=== PATIENT | female | born 1945 | race Caucasian/White ===

== ENCOUNTER 2016-11-25 04:22 | Emergency (ER) | payer OTHER ==
--- NOTE | 2016-11-25 07:49 | DIAGNOSTIC IMAGING REPORT ---
PROCEDURE: XR THORACIC SPINE 3 VIEWS INDICATION: MID BACK PAIN TECHNIQUE: Three views. COMPARISON: None. FINDINGS: There are mild to moderate degenerative change of the mid thoracic spine with mild accentuation of the thoracic kyphosis. No evidence of an acute process or fracture. IMPRESSION: 1. Mild to moderate degenerative changes with accentuation of the thoracic kyphosis. 2. Otherwise negative thoracic spine.
--- NOTE | 2016-11-25 07:50 | DIAGNOSTIC IMAGING REPORT ---
PROCEDURE: XR LUMBAR SPINE 2 OR 3 VIEWS INDICATION: LOWER BACK PAIN TECHNIQUE: Three views. COMPARISON: None. FINDINGS: Moderate degenerate changes of the lower lumbar facet joints. There is mild this space narrowing at L4-5 and L5-S1 Osseous structures and disc spaces are otherwise normal. No evidence of an acute process or fracture. IMPRESSION: 1. Mild to moderate degenerative changes of the lower lumbar spine.
--- NOTE | 2016-11-25 09:56 | ED CLINICAL REPORT ---
Clinical Report - Physicians/Mid Levels [facility] [address] [place] [address] 11/25/2016 4:25 Patient: NIGEL FERNANDO Time Seen: 07:10. Arrived- By private vehicle. Historian- patient. HISTORY OF PRESENT ILLNESS Chief Complaint: BACK PAIN. It is described as being severe and in the area of the mid thoracic spine, lower thoracic spine and upper lumbar spine. The quality is noted to be aching and "pain". Onset was last night and it is still present. It was abrupt in onset and has been constant. No bladder dysfunction, bowel dysfunction, sensory loss or motor loss. Patient denies an injury. Similar symptoms previously: REVIEW OF SYSTEMS No chills, fever, sweats, calf pain or chest pain. No cough, difficulty breathing, pedal edema, palpitations or abdominal pain. No constipation, diarrhea, nausea, vomiting or urinary problems. All systems otherwise negative, except as recorded above. PAST HISTORY Problems: no known problems. Additional Surgeries: Adenoidectomy. Dilatation & Curettage. Fracture Repair. Hysterectomy. Tonsillectomy. Medications: Naproxen Oral, PRN. Allergies: No Known Drug Allergy. SOCIAL HISTORY Never smoker. No alcohol use or drug use. FAMILY HISTORY No significant family medical history. ADDITIONAL NOTES The nursing notes have been reviewed. PHYSICAL EXAM Vital Signs: 11/25/2016 05:02 BP: 165/88. HR: 68. RR: 15. O2 saturation: 99%. Temp: 98.7 F. Delgado-Youssef pain scale: 6/10. Have been reviewed. Appearance: Alert. Appears to be in pain. Eyes: Pupils equal, round and reactive to light. ENT: Pharynx normal. Neck: Normal inspection. Painless ROM. CVS: Normal heart rate and rhythm. Heart sounds normal. Respiratory: No respiratory distress. Breath sounds normal. Abdomen: Normal inspection. Soft and nontender. Bowel sounds normal. No organomegaly. No mass. Back: Severe muscle spasm present in the right lower and left lower thoracic area and right upper and left upper lumbar area. Moderately limited ROM in the back- in the lumbar spine: decreased flexion, extension, right lateral bending, left lateral bending and rotation to the right and left. Skin: Skin warm and dry. Normal skin color. Normal skin turgor. Extremities: Extremities exhibit normal ROM. No calf tenderness. Neuro: No motor deficit. No sensory deficit. LABS, X-RAYS, AND EKG T-Spine X-rays: (IMPRESSION: 1. Mild to moderate degenerative changes with accentuation of the thoracic kyphosis. 2. Otherwise negative thoracic spine.). The X-rays were interpreted by the radiologist and contemporaneously by me. LS-Spine X-rays: (IMPRESSION: 1. Mild to moderate degenerative changes of the lower lumbar spine.). The X-rays were interpreted by the radiologist and contemporaneously by me. PROGRESS AND PROCEDURES Course of Care: Symptoms better. Vital signs have been reviewed. Patient/family counseled. Old medical records ordered. Disposition: Discharged. Condition: stable. 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 Mid back spasm. INSTRUCTIONS Apply ice for 20 minutes four times a day. Don't apply ice directly to skin and don't use while asleep. No driving or operating machinery while taking medication. Sedative medication was given during your visit. No lifting greater than 5 lbs, no bending or stooping or no prolonged sitting. Warnings: GENERAL WARNINGS: Return or contact your physician immediately if your condition worsens or changes unexpectedly, if not improving as expected, or if other problems arise. Prescription Medications: Flexeril 10 mg: Take 1 orally every 8 hours as needed for muscle spasm. Dispense twenty (20). No refills. Substitution is permissible. Toradol 10 mg tablets: Take 1 tablet orally every 6 hours as needed. Dispense fifteen (15). No refills. Substitution is permissible. Follow-up: Follow up with your doctor in two days. Call for the next available appointment. Understanding of the discharge instructions verbalized by patient. (Electronically signed by Gerard Melissa MD 11/27/2016 3:16)
--- NOTE | 2016-11-25 09:56 | ED NURSING NOTES ---
Clinical Report - Nurses [facility] [address] [place] [address] 11/25/2016 4:25 Patient: NIGEL FERNANDO TRIAGE Triage time 05:02. Acuity: LEVEL 4. Chief Complaint: BACK PAIN and ("spasms"). Alert. No acute distress. --05:06 Christina Prince R.N. 05:02 11/25/16. BP: 165/88. HR: 68. RR: 15. O2 saturation: 99% on room air. Temp: 98.7 F (oral). Delgado-Youssef pain scale: 6/10. --05:06 Christina Prince R.N. Weight: 74.8 kg stated. Height/Length: 66 inches Per Patient. BMI: 26.6. --05:06 Christina Prince R.N. Medications Naproxen Oral, PRN. --05:03 Christina Prince R.N. Allergies No Known Drug Allergy. --05:03 Christina Prince R.N. History Arrived by private vehicle. Historian: patient. Primary physician (Amy Acuña)). This started last night. Onset. (at about 2100). 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 PAST MEDICAL HX: Tetanus status: up-to-date. Immunizations: up-to-date. SOCIAL HX: Never smoker. No alcohol use or drug use. NUTRITIONAL RISK ASSESSMENT: The nutritional risk assessment revealed no deficiencies. FUNCTIONAL ASSESSMENT: Functional assessment: no impairments noted. --05:06 Christina Prince R.N. PROBLEMS: no known problems. ADDITIONAL SURGERIES: Adenoidectomy. Dilatation & Curettage. Fracture Repair. Hysterectomy. Tonsillectomy. --05:05 Christina Prince R.N. Interventions ID band on patient. To treatment room. --05:06 Christina Prince R.N. PHYSICAL ASSESSMENT To room via wheelchair. Patient gowned. GENERAL / NEURO / PSYCH: Alert. Oriented X 4. Appears in no acute distress. Appears anxious. RESPIRATORY: Respirations not labored. CVS: Capillary refill less than 2 seconds. --05:06 Christina Prince R.N. ( Pt making frequent, full body jerking movements and yells "owie". Pt states that when she gets the spasms, this is her usual behavior.). --05:13 Christina Prince R.N. NURSING PROGRESS NOTES Head of bed elevated. Two patient identifiers checked. Call light placed in reach. Side rails up x 1. Bed placed in lowest position. Brakes of bed on. --05:07 Christina Prince R.N. ( Pt's son at bedside). --05:07 Christina Prince R.N. Patient ready for evaluation- chart flagged. --05:07 Christina Prince R.N. ( pt ambulating in hallway, normal gait noted, no obvious distress at this time. Pt's son approaches nurses station asking when MD will be in to see his mom. Son informed that the Dr will be in as soon as he can.). --05:44 Christina Prince R.N. 07:36 11/25/16. BP: 190/73. HR: 72. RR: 18. O2 saturation: 99% on room air. --07:37 Lisette Arnold R.N. 07:37 11/25/2016 Valium (Diazepam) PO 5 mg given. Allergies verified, confirmed 5 rights and sedative warning given to the patient. --07:37 Lisette Arnold R.N. 07:38 11/25/2016 Toradol (Ketorolac Tromethamine) IM 60 mg given. Given in the right gluteus emeli. Allergies verified and confirmed 5 rights. --07:38 Lisette Arnold R.N. 07:39 11/25/16. Pulse oximeter placed on patient; monitor alarms on. --07:39 Lisette Arnold R.N. 07:58 11/25/2016 Valium PO Response: no adverse reaction (pt quietly resting). --07:58 Lisette Arnold R.N. 07:58 11/25/2016 Toradol IM Response: no adverse reaction (pt resting). --07:58 Lisette Arnold R.N. 08:22 11/25/16. BP: 133/78. HR: 58. RR: 16. O2 saturation: 98% on room air. Pain level now: 9/10. Additional comments: Patient awoken after multiple verbal cues, rates pain a 9/10 and quickly falls back asleep. --08:23 McQuCeci durbin, ER Tech1 08:26 Patient awoken again with verbal cues. Assisted to ambulate in hallway. Patient walked a short distance, needing standby assist. --08:27 Ceci Simmons, ER Tech1 ( Pt's son at bedside. Pt awake and given crackers and water.). --09:19 Lisette Arnold R.N. DISPOSITION / DISCHARGE Departure time: 10:05 Nov 25 2016. Condition at departure: improved and stable. No learning barriers present. Discharge instructions provided and reviewed with the patient. Reviewed medication(s) side effects, precautions and dosing information. Prescription(s) given to the patient. Patient verbalized understanding. Written instructions provided in Japanese. The patient was discharged by the physician. She was discharged home and accompanied by son. She left the Emergency Department ambulatory and via private vehicle. Driving (son). --14:23 Lisette Arnold R.N. 14:20 11/25/16. BP: 158/86. HR: 71. RR: 18. O2 saturation: 100% on room air. Temp: 98.8 F (oral). --14:23 Lisette Arnold R.N. Locked/Released at 11/25/2016 14:24 by Lisette Arnold R.N.
--- NOTE | 2016-11-25 09:56 | ED ORDER SUMMARY ---
..... Patient: NIGEL FERNANDO OrderSheet [facility] VisitID: [id number] [place] [address] 71y, F Registration Date/Time: 11/25/2016 ORDER SHEET Weight: 74.8 kg (stated) Allergies: No Known Drug Allergy GENERAL ORDERS: Thoracic Spine 3V Urgent (07:12 11/25/2016 Isabella HOSKINS) (Ack 7:19 LNations ER Tech1) (7:39 MWinterer R.N.) Lumbar Spine 2 or 3V Urgent (07:12 11/25/2016 Isabella HOSKINS) (Ack 7:19 LNations ER Tech1) (7:39 MWinterer R.N.) MEDICATION ORDERS: Toradol IM 60 mg (NOW) (07:11 11/25/2016 Isabelal HOSKINS) (Ack 7:19 MWinterer R.N.) (7:38 MWinterer R.N.) Valium PO 5 mg (HIGH ALERT MEDICATION, NOW) (07:11 11/25/2016 Isabella HOSKINS) (Ack 7:19 MWinterer R.N.) (7:37 MWinterer R.N.) IV FLUIDS: ORDER SHEET NOTES: [Electronically signed by Lisette Arnold R.N. (14:24 11/25/2016)] [Electronically signed by Gerard Melissa MD (03:16 11/27/2016)] [Electronically locked/signed by Lisette Arnold R.N. (14:24 11/25/2016)]
--- NOTE | 2016-11-25 09:56 | ED ORDER SUMMARY ---
..... Patient: NIGEL FERNANDO OrderSheet [facility] VisitID: [id number] [place] [address] 71y, F Registration Date/Time: 11/25/2016 ORDER SHEET Weight: 74.8 kg (stated) Allergies: No Known Drug Allergy GENERAL ORDERS: Thoracic Spine 3V Urgent (07:12 11/25/2016 Isabella HOSKINS) (Ack 7:19 LNations ER Tech1) (7:39 MWinterer R.N.) Lumbar Spine 2 or 3V Urgent (07:12 11/25/2016 Isabella HOSKINS) (Ack 7:19 LNations ER Tech1) (7:39 MWinterer R.N.) MEDICATION ORDERS: Toradol IM 60 mg (NOW) (07:11 11/25/2016 Isabella HOSKINS) (Ack 7:19 MWinterer R.N.) (7:38 MWinterer R.N.) Valium PO 5 mg (HIGH ALERT MEDICATION, NOW) (07:11 11/25/2016 Isabella HOSKINS) (Ack 7:19 MWinterer R.N.) (7:37 MWinterer R.N.) IV FLUIDS: ORDER SHEET NOTES: [Electronically signed by Lisette Aronld R.N. (14:24 11/25/2016)] [Electronically signed by Gerard Melissa MD (03:16 11/27/2016)] [Electronically locked/signed by Lisette Arnold R.N. (14:24 11/25/2016)]
--- NOTE | 2016-11-27 03:16 | ED DISCHARGE INSTRUCTIONS ---
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 Mid back spasm. INSTRUCTIONS Apply ice for 20 minutes four times a day. Don't apply ice directly to skin and don't use while asleep. No driving or operating machinery while taking medication. Sedative medication was given during your visit. No lifting greater than 5 lbs, no bending or stooping or no prolonged sitting. Warnings: GENERAL WARNINGS: Return or contact your physician immediately if your condition worsens or changes unexpectedly, if not improving as expected, or if other problems arise. Prescription Medications: Flexeril 10 mg: Take 1 orally every 8 hours as needed for muscle spasm. Dispense twenty (20). No refills. Substitution is permissible. Toradol 10 mg tablets: Take 1 tablet orally every 6 hours as needed. Dispense fifteen (15). No refills. Substitution is permissible. Follow-up: Follow up with your doctor in two days. Call for the next available appointment. Understanding of the discharge instructions verbalized by patient. ADDITIONAL INFORMATION Back Pain [Acute Or Chronic] Back pain is usually caused by an injury to the muscles or ligaments of the spine. Sometimes the disks that separate each bone in the spine may bulge and cause pain by pressing on a nearby nerve. Back pain may also appear after a sudden twisting/bending force (such as in a car accident), after a simple awkward movement, or lifting something heavy with poor body positioning. In either case, muscle spasm is often present and adds to the pain. Acute back pain usually gets better in one to two weeks. Back pain related to disk disease, arthritis in the spinal joints or spinal stenosis (narrowing of the spinal canal) can become chronic and last for months or years. Unless you had a physical injury (for example, a car accident or fall) X-rays are usually not ordered for the initial evaluation of back pain. If pain continues and does not respond to medical treatment, x-rays and other tests may be performed at a later time. Home Care: You may need to stay in bed the first few days. But, as soon as possible, begin sitting or walking to avoid problems with prolonged bed rest (muscle weakness, worsening back stiffness and pain, blood clots in the legs). When in bed, try to find a position of comfort. A firm mattress is best. Try lying flat on your back with pillows under your knees. You can also try lying on your side with your knees bent up towards your chest and a pillow between your knees. Avoid prolonged sitting. This puts more stress on the lower back than standing or walking. During the first two days after injury, apply an ICE PACK to the painful area for 20 minutes every 2-4 hours. This will reduce swelling and pain. HEAT (hot shower, hot bath or heating pad) works well for muscle spasm. You can start with ice, then switch to heat after two days. Some patients feel best alternating ice and heat treatments. Use the one method that feels the best to you. You may use acetaminophen (Tylenol) or ibuprofen (Motrin, Advil) to control pain, unless another pain medicine was prescribed. [NOTE: If you have chronic liver or kidney disease or ever had a stomach ulcer or GI bleeding, talk with your doctor before using these medicines.] Be aware of safe lifting methods and do not lift anything over 15 pounds until all the pain is gone. Follow Up with your doctor or this facility if your symptoms do not start to improve after one week. Physical therapy may be needed. [NOTE: If X-rays were taken, they will be reviewed by a radiologist. You will be notified of any new findings that may affect your care.] Get Prompt Medical Attention if any of the following occur: Pain becomes worse or spreads to your legs Weakness or numbness in one or both legs Loss of bowel or bladder control Numbness in the groin or genital area Degenerative Disk Disease Spinal disks are gel-filled cushions between the bones of the spine (vertebrae). The disks act like shock absorbers. Over time, the disks may break down. This disorder is called degenerative disk disease (DDD). DDD can affect the neck or back. It is one of the most common causes of low back pain. It is the leading cause of disability in people under age 45 in the [place]. The pain usually remains localized to the lower back or neck. Muscle spasm is often present and adds to the pain. Disk degeneration is a natural part of aging, although it does not cause pain in most persons. It may also occur as a result of repeated minor injuries due to daily activities, sports, or accidents. It may lead to osteoarthritis of the spine. Back pain related to disk disease may come and go or become chronic and last for months or years. If the disk bulges or ruptures (also called slipped disk or herniated disk), it can put pressure on a nearby spinal nerve and cause neck or back pain that spreads down one arm or leg. X-rays or MRI (magnetic resonance imaging) scan may aid in the diagnosis. For acute pain, treatment consists of anti-inflammatory drugs, muscle relaxants, rest, ice, or heat. Narcotic pain medicines may be needed for short-term treatment of sudden worsening of pain. Due to their addictive potential, narcotics are not advised for long-term pain management. Other types of medicines are preferred. Surgery is usually not used to treat this condition unless there is a complication (such as nerve root compression). Home Care: FOR NECK PAIN: Use a comfortable pillow that supports the head and keeps the spine in a neutral position. The head should not be tilted forward or backward. FOR BACK PAIN: Avoid prolonged sitting. This puts more stress on the lower back than standing or walking. Establishing a regular exercise program to strengthen the supporting muscles of the spine will make it easier to live with DDD. During the first2 days after a flare-up of your pain, apply anice pack to the painful area for 20 minutes every 2-4 hours. This will reduce swelling and pain.Heat (hot shower, hot bath, or heating pad) works well for muscle spasm. You can start with ice, then switch to heat after2 days. Some patients feel best alternating ice and heat treatments. Use the method that feelsbest to you. You may use acetaminophen (Tylenol) or ibuprofen (Motrin, Advil) to control pain, unless another pain medicine was prescribed. [NOTE: If you have chronic liver or kidney disease or ever had a stomach ulcer or GI bleeding, talk with your doctor before using these medicines.] Follow Up with your physician, or as directed by our staff. [NOTE: If x-rays, a CT scan or an MRI scan were taken, they will be reviewed by a radiologist. You will be notified of any new findings that may affect your care.] Return Promptly or contact your doctor if any of the following occur: Increasing back pain New weakness, numbness, or pain in one or both arms or legs Foot drop (foot drags when you walk) Loss of bowel or bladder control Numbness or tingling in the buttock or groin area Unexplained fever over 100.4F (38.0C) Muscle Spasm A MUSCLE SPASM is a prolonged contraction of the muscle fibers. This may be caused by strain or over exertion of the muscle, injury, or metabolic changes. If it goes on long enough the muscle spasm causes pain. Common locations for muscle spasm are the legs (especially at night in older persons), in the neck and back. Home Care: 1) Heat, massage and passive stretching will help relax muscle spasm. 2) When the spasm is in your arm or leg, you may stretch the muscle passively by having someone bend or straighten the joint above or below the muscle until you feel the stretch on the sore muscle. Hold this tension for 5-30 seconds, as tolerated. Release. Rest for one minute. Repeat until the spasm is relieved. 3) You may use acetaminophen (Tylenol) or ibuprofen (Motrin, Advil) to control pain, unless another medicine was prescribed. [ NOTE : If you have chronic liver or kidney disease or ever had a stomach ulcer or GI bleeding, talk with your doctor before using these medicines.] Follow Up with your doctor or this facility if you are not improving within the next 1-2 days. Get Prompt Medical Attention or contact your doctor if any of the following occur: -- Fingers or toes become swollen, cold, blue, numb or tingly -- You develop weakness in the affected arm or leg -- Pain increases and is not controlled by the above measures Cyclobenzaprine Hydrochloride Oral tablet What is this medicine? CYCLOBENZAPRINE (sye kloe GINGER za preen) is a muscle relaxer. It is used to treat muscle pain, spasms, and stiffness. How should I use this medicine? Take this medicine by mouth with a glass of water. Follow the directions on the prescription label. If this medicine upsets your stomach, take it with food or milk. Take your medicine at regular intervals. Do not take it more often than directed. Talk to your sheet hanger regarding the use of this medicine in children. Special care may be needed. What side effects may I notice from receiving this medicine? Side effects that you should report to your doctor or health childbirth and infant care teacher as soon as possible: allergic reactions like skin rash, itching or hives, swelling of the face, lips, or tongue chest pain fast heartbeat hallucinations seizures vomiting Side effects that usually do not require medical attention (report to your doctor or health childbirth and infant care teacher if they continue or are bothersome): headache What may interact with this medicine? Do not take this medicine with any of the following medications: cisapride droperidol flecainide grepafloxacin halofantrine levomethadyl MAOIs like Carbex, Eldepryl, Marplan, Nardil, and Parnate nilotinib pimozide probucol sertindole This medicine may also interact with the following medications: abarelix alcohol contrast dyes dolasetron guanethidine medicines for cancer medicines for depression, anxiety, or psychotic disturbances medicines to treat an irregular heartbeat medicines used for sleep or numbness during surgery or procedure methadone octreotide ondansetron palonosetron phenothiazines like chlorpromazine, mesoridazine, prochlorperazine, thioridazine some medicines for infection like alfuzosin, chloroquine, clarithromycin, levofloxacin, mefloquine, pentamidine, troleandomycin tramadol vardenafil What if I miss a dose? If you miss a dose, take it as soon as you can. If it is almost time for your next dose, take only that dose. Do not take double or extra doses. Where should I keep my medicine? Keep out of the reach of children. Store at room temperature between 15 and 30 degrees C (59 and 86 degrees F). Keep container tightly closed. Throw away any unused medicine after the expiration date. What should I tell my health care provider before I take this medicine? They need to know if you have any of these conditions: heart disease, irregular heartbeat, or previous heart attack liver disease thyroid problem an unusual or allergic reaction to cyclobenzaprine, tricyclic antidepressants, lactose, other medicines, foods, dyes, or preservatives or trying to get breast-feeding What should I watch for while using this medicine? Check with your doctor or health childbirth and infant care teacher if your condition does not improve within 1 to 3 weeks. You may get drowsy or dizzy when you first start taking the medicine or change doses. Do not drive, use machinery, or do anything that may be dangerous until you know how the medicine affects you. Stand or sit up slowly. Your mouth may get dry. Drinking water, chewing sugarless gum, or sucking on hard candy may help. Ketorolac Tromethamine Oral tablet What is this medicine? KETOROLAC (thaddeus toe ROLE ak) is a non-steroidal anti-inflammatory drug (NSAID). It is used for a short while to treat moderate to severe pain, including pain after surgery. It should not be used for more than 5 days. How should I use this medicine? Take this medicine by mouth with a full glass of water. Follow the directions on the prescription label. Take your medicine at regular intervals. Do not take your medicine more often than directed. Do not take more than the recommended dose. A special MedGuide will be given to you by the pharmacist with each prescription and refill. Be sure to read this information carefully each time. Talk to your sheet hanger regarding the use of this medicine in children. While this drug may be prescribed for children as young as 16 years of age for selected conditions, precautions do apply. Patients over 65 years old may have a stronger reaction and need a smaller dose. What side effects may I notice from receiving this medicine? Side effects that you should report to your doctor or health childbirth and infant care teacher as soon as possible: allergic reactions like skin rash, itching or hives, swelling of the face, lips, or tongue black or tarry stools breathing problems changes in vision chest pain high blood pressure nausea or vomiting redness, blistering, peeling or loosening of the skin, including inside the mouth severe abdominal pain slurred speech or weakness on one side of the body unexplained weight gain or swelling unusual bleeding or bruising unusually weak or tired yellowing of eyes or skin Side effects that usually do not require medical attention (report to your doctor or health childbirth and infant care teacher if they continue or are bothersome): diarrhea dizziness headache heartburn What may interact with this medicine? Do not take this medicine with any of the following medications: aspirin and aspirin-like medicines cidofovir methotrexate NSAIDs, medicines for pain and inflammation, like ibuprofen or naproxen pemetrexed probenecid This medicine may also interact with the following medications: alcohol alendronate alprazolam carbamazepine cyclosporine diuretics flavocoxid fluoxetine ginkgo lithium medicines for high blood pressure like enalapril medicines that affect platelets like pentoxifylline medicines that treat or prevent blood clots like heparin, warfarin muscle relaxants phenytoin steroid medicines like prednisone or cortisone thiothixene What if I miss a dose? If you miss a dose, take it as soon as you can. If it is almost time for your next dose, take only that dose. Do not take double or extra doses. Where should I keep my medicine? Keep out of the reach of children. Store at room temperature between 20 and 25 degrees C (68 and 77 degrees F). Throw away any unused medicine after the expiration date. What should I tell my health care provider before I take this medicine? They need to know if you have any of these conditions: asthma bleeding problems like hemophilia cigarette smoker drink more than 3 alcohol containing drinks a day heart disease or circulation problems such as heart failure or leg edema (fluid retention) high blood pressure kidney disease liver disease stomach bleeding or ulcers an unusual or allergic reaction to ketorolac, aspirin, other NSAIDs, other medicines, foods, dyes, or preservatives or trying to get breast-feeding What should I watch for while using this medicine? Tell your doctor or health childbirth and infant care teacher if your pain does not get better. Talk to your doctor before taking another medicine for pain. Do not treat yourself. This medicine does not prevent heart attack or stroke. In fact, this medicine may increase the chance of a heart attack or stroke. The chance may increase with longer use of this medicine and in people who have heart disease. If you take aspirin to prevent heart attack or stroke, talk with your doctor or health childbirth and infant care teacher. Do not take medicines such as ibuprofen and naproxen with this medicine. Side effects such as stomach upset, nausea, or ulcers may be more likely to occur. Many medicines available without a prescription should not be taken with this medicine. This medicine can cause ulcers and bleeding in the stomach and intestines at any time during treatment. Do not smoke cigarettes or drink alcohol. These increase irritation to your stomach and can make it more susceptible to damage from this medicine. Ulcers and bleeding can happen without warning symptoms and can cause . You may get drowsy or dizzy. Do not drive, use machinery, or do anything that needs mental alertness until you know how this medicine affects you. Do not stand or sit up quickly, especially if you are an older patient. This reduces the risk of dizzy or fainting spells. This medicine can cause you to bleed more easily. Try to avoid damage to your teeth and gums when you brush or floss your teeth. You have been given the following additional information: Back Pain (Acute Or Chronic) Degenerative Disk Disease Muscle Spasm Cyclobenzaprine Hydrochloride Oral tablet Ketorolac Tromethamine Oral tablet No driving or operating machinery while taking medication. Sedative medication was given during your visit. No lifting greater than 5 lbs, no bending or stooping or no prolonged sitting. (Electronically signed by Gerard Melissa MD 11/27/2016 3:16)
--- NOTE | 2016-11-27 03:17 | ED MAR SUMMARY ---
..... Medication Administration Record [facility] [address] [place] [address] Patient: NIGEL FERNANDO Visit ID: [id number] 71y, F Weight: 74.8 kg Height/Length: 66 in BMI: 26.6 ALLERGIES: No Known Drug Allergy Given 07:37 11/25/2016 Lisette Arnold, R.N. Medication Administered: VALIUM [PO] (DIAZEPAM), Dose: 5 mg PO. Medication Ordered: Valium PO 5 mg (HIGH ALERT MEDICATION, NOW). Given 07:38 11/25/2016 Lisette Arnold, R.N. Medication Administered: TORADOL [IM] (KETOROLAC TROMETHAMINE), Dose: 60 mg IM. Medication Ordered: Toradol IM 60 mg (NOW).
--- NOTE | 2016-11-27 03:17 | ED MED RECONCILIATION SUMMARY ---
Patient: NIGEL FERNANDO Medication Reconciliation Report [facility] VisitID: [id number] [address] [place] [address] 71y, F Registration Date/Time: 11/25/2016 Weight: 74.8 kg Height/Length: 66 in. BMI: 26.6 ALLERGIES: No Known Drug Allergy The patient's Home Medications are listed below: THE FOLLOWING MEDICATIONS NEED TO BE RECONCILED: Naproxen Oral, PRN The source(s) of the original Home Medication information: Not obtained. The following Medications were given to the patient in the Emergency Department: Valium [PO] PO 5 mg, administered: 11/25/2016 7:37:00 AM Toradol [IM] IM 60 mg, administered: 11/25/2016 7:38:00 AM The following Medications were prescribed to the patient: Flexeril 10 mg: Take 1 orally every 8 hours as needed for muscle spasm. Dispense twenty (20). No refills. Substitution is permissible. -- Gerard Melissa MD Toradol 10 mg tablets: Take 1 tablet orally every 6 hours as needed. Dispense fifteen (15). No refills. Substitution is permissible. -- Gerard Melissa MD
--- NOTE | 2016-11-27 03:17 | ED MAR SUMMARY ---
..... Medication Administration Record [facility] [address] [place] [address] Patient: NIGEL FERNANDO Visit ID: [id number] 71y, F Weight: 74.8 kg Height/Length: 66 in BMI: 26.6 ALLERGIES: No Known Drug Allergy Given 07:37 11/25/2016 Liestte Arnold, R.N. Medication Administered: VALIUM [PO] (DIAZEPAM), Dose: 5 mg PO. Medication Ordered: Valium PO 5 mg (HIGH ALERT MEDICATION, NOW). Given 07:38 11/25/2016 Lisette Arnold, R.N. Medication Administered: TORADOL [IM] (KETOROLAC TROMETHAMINE), Dose: 60 mg IM. Medication Ordered: Toradol IM 60 mg (NOW).
--- NOTE | 2016-11-27 03:17 | ED MED RECONCILIATION SUMMARY ---
Patient: NIGEL FERNANDO Medication Reconciliation Report [facility] VisitID: [id number] [address] [place] [address] 71y, F Registration Date/Time: 11/25/2016 Weight: 74.8 kg Height/Length: 66 in. BMI: 26.6 ALLERGIES: No Known Drug Allergy The patient's Home Medications are listed below: THE FOLLOWING MEDICATIONS NEED TO BE RECONCILED: Naproxen Oral, PRN The source(s) of the original Home Medication information: Not obtained. The following Medications were given to the patient in the Emergency Department: Valium [PO] PO 5 mg, administered: 11/25/2016 7:37:00 AM Toradol [IM] IM 60 mg, administered: 11/25/2016 7:38:00 AM The following Medications were prescribed to the patient: Flexeril 10 mg: Take 1 orally every 8 hours as needed for muscle spasm. Dispense twenty (20). No refills. Substitution is permissible. -- Gerard Melissa MD Toradol 10 mg tablets: Take 1 tablet orally every 6 hours as needed. Dispense fifteen (15). No refills. Substitution is permissible. -- Gerard Melissa MD
== END 2016-11-25 10:05 | disposition home or self-care (01) ==
LOC: ED SRH 04:22
DX: M47.894 Other spondylosis, thoracic region (principal); M51.34 Other intervertebral disc degeneration, thoracic region; M54.6 Pain in thoracic spine; M62.830 Muscle spasm of back